=== PATIENT | male | born 1985 | race Hispanic/Latino ===

== ENCOUNTER 2025-01-02 23:14 | Emergency (ER) | payer OTHER, SELFPAY ==
[2025-01-02 23:21] VITALS: BP 132/78; PULSE 88; RESP 18; TEMP 36.4; O2SAT 96; BMI 34.0
--- NOTE | 2025-01-02 23:52 | ED_ITS ---
HPI - General Adult General Chief complaint: Dental/Oral Stated complaint: Stitch of gum graft came undone Time Seen by Provider: 01/02/25 23:29 Source: patient Mode of arrival: Ambulatory History of Present Illness HPI narrative: Healthy 39-year-old gentleman who had skin grafting to the roof of his mouth with a database programmer analyst yesterday. As some of the skin adhesive and anesthetic is wearing off he is concerned that a stitch may have fallen out or there is problems with the wound and he comes in for further evaluation. He is doing the swish and swallow and all appropriate care is recommended by his database programmer analyst. No fevers or other concerns Patient History Social History Smoking Status: Never smoker Smoking Status: Never smoker Exam Initial Vital Signs Initial Vital Signs: Vital Signs Temperature 97.6 F 01/02/25 23:21 Pulse Rate 88 01/02/25 23:21 Respiratory Rate 18 01/02/25 23:21 Blood Pressure 132/78 01/02/25 23:21 Pulse Oximetry 96 01/02/25 23:21 Oxygen Delivery Method Room Air 01/02/25 23:21 General: Alert appropriate in no acute distress HEENT: Patient has approximately 1 x 2 cm skin graft on the right side of his hard palate that appears actually to be healing nicely. Five sut[address] still [address]. Reassurance is given. Respiratory: Able to speak in full sentences, no obvious respiratory distress Skin: No obvious rashes, warm and dry Neurologic: Grossly intact no obvious asymmetries or abnormalities Psych: appropriate insight and affect, cooperative Course Vital Signs Vital signs: Vital Signs - 8 hr 01/02/25 23:21 Temperature 97.6 F Pulse Rate 88 Respiratory Rate 18 Blood Pressure 132/78 Pulse Oximetry 96 Oxygen Delivery Method Room Air Medical Decision Making [facility] Narrative Medical decision making narrative: 39-year-old gentleman with skin grafting done his database programmer analyst office the graft site was from the right palate, he is concerned that 1 of the sutures came out. It appears to actually all be in place and healing nicely with no signs of infection or complication. I took a picture of the wound for him to share with his database programmer analyst when he talks with him tomorrow. Continue all oral care is recommended and no additional workup or treatment from the emergency department is required. He is safe for discharge Discharge Plan Departure Patient Disposition: Home Clinical Impression: Postop check Referrals: Kaylie Arevalo MD [Primary Care Provider] - Stand Alone Forms: Patient Portal/API/Survey
== END 2025-01-02 23:55 | disposition home or self-care (01) ==
PROVIDERS: Emergency Provider Emergency Medicine
DX: Z48.815 Encounter for surgical aftercare following surgery on the digestive system (principal)
CPT/HCPCS: 99281